=== PATIENT | male | born 1945 | race Caucasian/White ===

== ENCOUNTER 2018-07-13 07:10 | Emergency (ER) | payer OTHER ==
[2018-07-13 07:28] VITALS: BP 113/72; PULSE 82; TEMP 98; BMI 24.7
--- NOTE | 2018-07-13 07:30 | PDOC ---
History of Present Illness - General Chief Complaint: Edema Stated Complaint: L SIDED FACIAL SWELLING Time Seen by Provider: 07/13/18 07:29 - History of Present Illness Initial Comments: 07/13/18 08:44 The patient is a 73 year old male who denies significant PMH who presents for evaluation of left sided facial swelling. The patient reports a 1 day history of worsening left sided facial swelling and pain prompting his presentation to the ED for further evaluation. The patient notes that he has poor dentition and has been told that he requires tooth extraction on the left side as well. He otherwise denies fevers, chills, SOB, chest pain, nausea, vomiting, abdominal pain, or changes with urination or bowel movements. Past History - Past Medical History Allergies/Adverse Reactions: Allergies Allergy/AdvReac Type Severity Reaction Status Date / Time No Known Allergies Allergy Verified 07/13/18 07:24 Home Medications: Ambulatory Orders Amox-Tr/K Cl [Augmentin - 875Mg Tablet] 1 tab PO BID #20 tablet 07/13/18 COPD: No - Suicide/Smoking/Psychosocial Hx Smoking History: Never smoked Review of Systems - Review of Systems Comments:: 07/13/18 08:46 Constitutional: No fevers, chills, fatigue, malaise HEENT: Left Facial Swelling. No Rhinorrhea, nasal congestion, visual changes Cardiovascular: No chest pain, syncope, palpitations, lightheadedness Respiratory: No Cough, SOB, Hemoptysis, Gastrointestinal: No Abdominal pain, Nausea, Vomiting, Constipation, Diarrhea, Melena Genitourinary: No Dysuria, Frequency, Urgency, Hesitancy, Hematuria, Flank pain Musculoskeletal: No Myalgia, arthralgia Skin: No rashes, itching, bruising, pallor Neurologic: No Headache, Dizziness, Numbness, Weakness, or Tingling Psychiatric: No Hallucinations. No SI or HI *Physical Exam - Vital Signs Last Vital Signs Temp Pulse Resp BP Pulse Ox 98 F 82 18 113/72 99 07/13/18 07:21 07/13/18 07:21 07/13/18 07:21 07/13/18 07:21 07/13/18 07:21 - Physical Exam Comments: 07/13/18 08:47 General Appearance: Nourished. No Apparent Distress HEENT: Edema noted to the left face with induration and fluctuance palpable on exam to the left cheek. No Pharyngeal Erythema, Tonsillar Exudate, Tonsillar Erythema Neck: No Cervical Lymphadenopathy Respiratory/Chest: Lungs Clear, Normal Breath Sounds. No Crackles, Rales, Rhonchi, Wheezing Cardiovascular: Regular Rhythm, Regular Rate. No Murmur, Gallops, Rubs Gastrointestinal/Abdominal: Normal Bowel Sounds, Soft. No Guarding, Rebound, Tenderness Musculoskeletal: No CVA Tenderness Extremity: Normal Capillary Refill Integumentary: Normal Color, Dry, Warm Neurologic: Fully Oriented, Alert, Normal Mood/Affect, Normal Response, Heart Score/ECG Review #1 ECG reviewed & interpreted by me at: 08:48 General ECG Interpretation: Sinus Rhythm, Normal Rate, No acute ischemic changes 07/13/18 08:48 Left [place] Deviation Left Bundle Branch Block ED Treatment Course - LABORATORY CBC & Chemistry Diagram: 07/13/18 08:10 07/13/18 08:10 Medical Decision Making - Medical Decision Making 07/13/18 08:48 The patient is a 73 year old male who denies significant PMH who presents for evaluation of left sided facial swelling. Differential includes but is not limited to: Cellulitis, Abscess, Infectious, metabolic Derangement. Given the patient's history and physical exam, we are concerned for an abscess. We will obtain a cbc, cmp, lactate, blood cultures, coags, facial CT to evaluate further. We will treat in the meantime with iv fluids and clindamycin 600mg and continue to monitor and reassess while here in the ED. 07/13/18 09:06 The patient was brought to CT scan and is refusing IV contrast at this time. We extensively discussed the need for iv contrast and the limited study without iv contrast for the patient's condition. The patient continued to voice that he did not want iv contrast due to not knowing how his body would react to the contrast. We attempted to address the patient's concerns and discussed the low risk of reaction to the contrast and the patient continued to refuse iv contrast. We will obtain CT scanning without contrast. 07/13/18 10:16 CBC demonstrates an elevated wbc to 11. cmp, lactate are unremarkable. We believe the patient requires admission for iv antibiotics given the extent of his soft tissue infection and risk for worsening deep tissue infection in the face. The patient voiced that he wished to leave A and is refuse admission at this time. We discussed the risks of leaving AMA including but not limited to , worsening infection, deep tissue infection, cavernous venous thrombosis, permanent disability and the patient continued to voice that he wished to leave AMA. We discussed the benefits of admission for iv antibiotics and the patient continued to voice that he wished to leave AMA. The patient signed the AMA form and his iv was removed. We sent antibiotics to the patient' s pharmacy for treatment and discussed strict return precautions with the patient who voiced understanding. The patient voiced that he would attempt to return to the ED for admission later today. *DC/Admit/Observation/Transfer Diagnosis at time of Disposition: Facial infection - Discharge Dispostion Disposition: AGAINST MEDICAL ADVICE Condition at time of disposition: Stable - Prescriptions Prescriptions: Amox-Tr/K Cl [Augmentin - 875Mg Tablet] 1 tab PO BID #20 tablet - Referrals - Patient Instructions Printed Discharge Instructions: DI for Cellulitis -- Adult Additional Instructions: Please return to the ER if you experience concerning or worsening symptoms including worsening difficulty breathing, weakness, or chest pain. Your lab results show that you have an infection to the deep tissues of your face. We are recommending admission for iv antibiotics. WE have sent a prescription for antibiotics to your pharmacy that you should take as directed. Please call to schedule a follow up appointment with your primary care provider within 1-2 days to discuss your ER visit and further management of your symptoms. - Post Discharge Activity
[2018-07-13] MEDS ORDERED: SODIUM CHLORIDE 1,000 ML IV STA (07:55)
[2018-07-13] MEDS ORDERED: CLINDAMYCIN 600MG PREMIX IVPB 600 MG/50 ML BAG IVPB ONE ×2 (07:55→08:16)
--- NOTE | 2018-07-13 08:18 | PDOC ---
Attending Attestation - Resident Resident Name: RadhikaHerrera - ED Attending Attestation I have performed the following: I have examined & evaluated the patient, The case was reviewed & discussed with the resident, I agree w/resident's findings & plan, Exceptions are as noted - HPI HPI: 07/13/18 08:13 73-year-old male with no past medical history presents with left maxillary swelling and erythema. Patient reports his poor dentition and is scheduled to undergo further workup to his left upper molar tooth. Has not received any recent dental procedures yet. Yesterday, noted a small amount of swelling in the left maxillary region that have progressively worsened today. Denies any pain on extraocular movements or ocular pain. No fevers or chills. Came in because his symptoms worsen. - Physicial Exam PE: 07/13/18 08:14 GENERAL: Awake, alert, and fully oriented, in no acute distress HEAD: No signs of trauma EYES: PERRLA, EOMI, sclera anicteric, conjunctiva clear ENT: Auricles normal inspection, hearing grossly normal, nares patent, oropharynx clear without exudates. Moist mucosa + poor dentition. Left maxillary induration and ?fluctuance approximately 6x6 cm , tender to palpation,. NECK: Normal ROM, supple, EXTREMITIES: Normal range of motion, no edema. No clubbing or cyanosis. No cords, erythema, or tenderness NEUROLOGICAL: Cranial nerves II through XII grossly intact. Normal speech, normal gait SKIN: Warm, Dry, normal turgor, no rashes or lesions noted. - Medical Decision Making 07/13/18 08:18 Vital Signs Temp Pulse Resp BP Pulse Ox 98 F 82 18 113/72 99 07/13/18 07:21 07/13/18 07:21 07/13/18 07:21 07/13/18 07:21 07/13/18 07:21 impression: left facial cellulitis vs. abscess 2/2 likely poor dentition. I agree with resident's plan. Labs, blood cultures, CT facial with IV contrast. Likely needs transfer for OMFS consultation and management. Empiric IV antibiotics (clindamycin) 07/13/18 09:33 CBC, BMP 07/13/18 08:10 07/13/18 08:10 CMP Sodium 136 mmol/L (136-145) 07/13/18 08:10 Potassium 3.9 mmol/L (3.5-5.1) 07/13/18 08:10 Chloride 103 mmol/L (98-107) 07/13/18 08:10 Carbon Dioxide 25 mmol/L (21-32) 07/13/18 08:10 Anion Gap 8 MMOL/L (8-16) 07/13/18 08:10 BUN 11 mg/dL (7-18) 07/13/18 08:10 Creatinine 1.1 mg/dL (0.55-1.3) 07/13/18 08:10 Creat Clearance w eGFR > 60 (>60) 07/13/18 08:10 Random Glucose 114 mg/dL (74-106) H 07/13/18 08:10 Lactic Acid 1.0 mmol/L (0.4-2.0) 07/13/18 08:10 Calcium 8.7 mg/dL (8.5-10.1) 07/13/18 08:10 Total Bilirubin 1.4 mg/dL (0.2-1.0) H 07/13/18 08:10 AST 28 U/L (15-37) 07/13/18 08:10 ALT 28 U/L (13-61) 07/13/18 08:10 Alkaline Phosphatase 41 U/L (45-117) L 07/13/18 08:10 Total Protein 7.8 g/dl (6.4-8.2) 07/13/18 08:10 Albumin 4.0 g/dl (3.4-5.0) 07/13/18 08:10 07/13/18 10:34 Pt expresses that he needs to go home. states that he has to take care of his dogs, and errands but promises to come back. We expressed our concerns that the patient has not completed his workup and our concerns for deep space infection, facial abscess. The patient verbalizes and understands. He is AAOx3 and has capacity. He states that if the CT scan results do not come back by 11 am, he will go home AMA. Even if they do come back, he will leave AMA to take care of his errands. Pt has been given a prescription of clindamycin. Heart Score/ECG Review #1 ECG reviewed & interpreted by me at: 08:20 07/13/18 08:40 NSR 76, +LBBB, no std/evelyn, scarbossa negative
[2018-07-13 08:25] LABS: BASO % 0.4 % (0-2.0); HEMATOCRIT 38.8 % (35.4-49); LYMPH % 13.5 % (8-40); MCH 31.5 pg (25.7-33.7); MCHC 33.4 g/dl (32.0-35.9); MEAN CELL VOLUME 94.2 fl (80-96); MEAN PLT VOLUME 8.3 fl (7.5-11.1); MONO % 10.5 % (3.8-10.2); NEUT % 73.6 % (42.8-82.8); PLATELET COUNT 275 K/MM3 (134-434); RBC 4.12 M/mm3 (4.00-5.60); RDW 12.6 % (11.9-15.9); WHITE BLOOD COUNT 11.7 K/mm3 (4.0-10.0)
[2018-07-13 08:49] LABS: INR 1.05 (0.83-1.09); PROTHROMBIN TIME (PATIENT) 11.9 SEC (9.7-13.0)
[2018-07-13 08:52] LABS: ACTIVATED PTT 28.7 SECONDS (25.2-36.5)
[2018-07-13 09:01] LABS: CHLORIDE 103 mmol/L (98-107); POTASSIUM 3.9 mmol/L (3.5-5.1); SODIUM 136 mmol/L (136-145)
[2018-07-13 09:16] LABS: ALK PHOS 41 U/L (45-117); ANION GAP 8 MMOL/L (8-16); BILIRUBIN,TOTAL 1.4 mg/dL (0.2-1.0); BLOOD UREA NITROGEN 11 mg/dL (7-18); CALCIUM 8.7 mg/dL (8.5-10.1); CO2 25 mmol/L (21-32); CREATININE 1.1 mg/dL (0.55-1.3); GLUCOSE,RANDOM 114 mg/dL (74-106); SGOT/AST 28 U/L (15-37); SGPT/ALT 28 U/L (13-61); TOT PROT 7.8 g/dl (6.4-8.2)
--- NOTE | 2018-07-13 21:13 | EKG ---
Test Reason : Blood Pressure : / mmHG Vent. Rate : 076 BPM Atrial Rate : 076 BPM P-R Int : 180 ms QRS Dur : 152 ms QT Int : 416 ms P-R-T Axes : 045 -33 036 degrees QTc Int : 468 ms NORMAL SINUS RHYTHM LEFT AXIS DEVIATION LEFT BUNDLE BRANCH BLOCK ABNORMAL ECG NO PREVIOUS ECGS AVAILABLE Confirmed by BERT MELÉNDEZ MD ([id number]) on 07/13/2018 9:12:58 PM Referred By: Confirmed By:BERT MELÉNDEZ MD
== END 2018-07-13 11:10 | disposition left against medical advice (07) ==
LOC: JER 07:10
PROC: 3E03329 Introduction of Other Anti-infective into Peripheral Vein, Percutaneous Approach (ICD-10-PCS; principal; 2018-07-13)
PROC: 3E0337Z Introduction of Electrolytic and Water Balance Substance into Peripheral Vein, Percutaneous Approach (ICD-10-PCS; 2018-07-13)
DX: B99.9 Unspecified infectious disease (principal)
CPT/HCPCS: 36415; 70486-TC; 80053; 83605; 85025; 85610; 85730; 87040; 93005; 93010; 96361; 96365; 99283-25; J7030

== ENCOUNTER 2018-07-13 12:58 | Inpatient (IN) | payer OTHER ==
--- NOTE | 2018-07-13 13:16 | PDOC ---
History of Present Illness - General Chief Complaint: Edema Stated Complaint: REVISIT, FOLLOW UP Time Seen by Provider: 07/13/18 13:10 - History of Present Illness Initial Comments: 07/13/18 13:17 The patient is a 73 year old male who denies significant PMH who presents for evaluation of left sided facial swelling. The patient reports a 1 day history of worsening left sided facial swelling and pain prompting his presentation to the ED for further evaluation. The patient notes that he has poor dentition and has been told that he requires tooth extraction on the left side as well. He presented earlier today to the ED and left AMA prior to finishing is full work up. He returns for continued work up at this time. He otherwise denies fevers, chills, SOB, chest pain, nausea, vomiting, abdominal pain, or changes with urination or bowel movements. Past History - Past Medical History Allergies/Adverse Reactions: Allergies Allergy/AdvReac Type Severity Reaction Status Date / Time No Known Allergies Allergy Verified 07/13/18 13:07 Home Medications: Ambulatory Orders Amox-Tr/K Cl [Augmentin - 875Mg Tablet] 1 tab PO BID #20 tablet 07/13/18 Atorvastatin Calcium 10 mg PO HS 07/13/18 Fenofibrate Nanocrystallized [Fenofibrate] 145 mg PO DAILY 07/13/18 Lisinopril/Hydrochlorothiazide [Lisinopril-Hctz 10-12.5 mg Tab] 1 each PO DAILY 07/13/18 Metoprolol Succinate 50 mg PO DAILY 07/13/18 COPD: No - Suicide/Smoking/Psychosocial Hx Smoking History: Never smoked Review of Systems - Review of Systems Comments:: 07/13/18 13:18 Constitutional: No fevers, chills, fatigue, malaise HEENT: Left Facial Swelling. No Rhinorrhea, nasal congestion, visual changes Cardiovascular: No chest pain, syncope, palpitations, lightheadedness Respiratory: No Cough, SOB, Hemoptysis, Gastrointestinal: No Abdominal pain, Nausea, Vomiting, Constipation, Diarrhea, Melena Genitourinary: No Dysuria, Frequency, Urgency, Hesitancy, Hematuria, Flank pain Musculoskeletal: No Myalgia, arthralgia Skin: No rashes, itching, bruising, pallor Neurologic: No Headache, Dizziness, Numbness, Weakness, or Tingling Psychiatric: No Hallucinations. No SI or HI *Physical Exam - Vital Signs Last Vital Signs Temp Pulse Resp BP Pulse Ox 98.3 F 79 18 117/66 99 07/13/18 13:04 07/13/18 13:04 07/13/18 13:04 07/13/18 13:04 07/13/18 13:04 - Physical Exam Comments: 07/13/18 13:19 General Appearance: Nourished. No Apparent Distress HEENT: Edema noted to the left face with induration and fluctuance palpable on exam to the left cheek. No Pharyngeal Erythema, Tonsillar Exudate, Tonsillar Erythema Neck: No Cervical Lymphadenopathy Respiratory/Chest: Lungs Clear, Normal Breath Sounds. No Crackles, Rales, Rhonchi, Wheezing Cardiovascular: Regular Rhythm, Regular Rate. No Murmur, Gallops, Rubs Gastrointestinal/Abdominal: Normal Bowel Sounds, Soft. No Guarding, Rebound, Tenderness Musculoskeletal: No CVA Tenderness Extremity: Normal Capillary Refill Integumentary: Normal Color, Dry, Warm Neurologic: Fully Oriented, Alert, Normal Mood/Affect, Normal Response, ED Treatment Course - LABORATORY CBC & Chemistry Diagram: 07/14/18 06:10 07/14/18 06:10 Medical Decision Making - Medical Decision Making 07/13/18 13:19 The patient is a 73 year old male who denies significant PMH who presents for evaluation of left sided facial swelling. Patient had cbc, cmp, lactate, blood cultures drawn at his prior visit today with his cbc demonstrating an elevated wbc to 11. The patient received iv fluids and iv clindamycin during his prior visit to the ED. We will follow up on the patient's results from his facial CT and continue to monitor and reassess while here in the ED. 07/13/18 15:[address] demonstrates findings consistent with and extensive cellulitis but no abscess as read by our radiologist. The patient will require admission for further management and iv antibiotics. We discussed the case with the admitting team who accepted the patient for admission. *DC/Admit/Observation/Transfer Diagnosis at time of Disposition: Facial infection Cellulitis Qualifiers: Site of cellulitis: unspecified site Qualified Code(s): L03.90 - Cellulitis, unspecified - Discharge Dispostion Condition at time of disposition: Stable Decision to Admit order: Yes - Referrals - Patient Instructions - Post Discharge Activity
--- NOTE | 2018-07-13 13:21 | PDOC ---
Attending Attestation - Resident Resident Name: RadhikaHerrera - ED Attending Attestation I have performed the following: I have examined & evaluated the patient, The case was reviewed & discussed with the resident, I agree w/resident's findings & plan, Exceptions are as noted - HPI HPI: 07/13/18 13:18 73 yo M presents with left facial cellulitis vs. swelling. Pt had left AMA several hours ago to take care of his dogs. He now returns after taking his errands. No new complaints. - Physicial Exam PE: 07/13/18 13:19 AAOX3, NAD Poor dentition, ~6x6 cm induration and ?fluctuance? on left maxillary region. Airway protected. Pt breathing comfortably. - Medical Decision Making 07/13/18 13:20 Vital Signs Temp Pulse Resp BP Pulse Ox 98.3 F 79 18 117/66 99 07/13/18 13:04 07/13/18 13:04 07/13/18 13:04 07/13/18 13:04 07/13/18 13:[address] facial results. If no abscess, pt should be admitted for IV antibiotics. Otherwise, if facial abscess, needs OMFS consultation and likely transfer. 07/13/18 14:52 CT demonstrates large L facial cellulitis, but no discrete abscess
[2018-07-13] MEDS ORDERED: ACETAMINOPHEN 325 MG TABLET (FP) PO PRN (14:42)
--- NOTE | 2018-07-13 14:45 | HP ---
CHIEF COMPLAINT: Left-sided facial swelling PCP: None HISTORY OF PRESENT ILLNESS: 73 year-old male who denies significant PMH and who presents for evaluation of left-sided facial swelling. The patient reports a 1-day history of worsening left-sided facial swelling and pain prompting his presentation to the ED for further evaluation. The patient is scheduled for removal of an upper left tooth tomorrow morning with his regular dentist. He denies fevers, sweats, chills. ER course was notable for: (1) WBC 11.7k (2) CT facial bones: extensive soft tissue swelling about the left mandible extending into the periorbital region; no discrete abscess (3) Clinda IV 600mg x 1; NS x 1L Recent Travel: No PAST MEDICAL HISTORY: None reported PAST SURGICAL HISTORY: Social History: Smoking: Alcohol: Drugs: Family History: Allergies No Known Allergies Allergy (Verified 07/13/18 13:07) HOME MEDICATIONS: Home Medications Medication Instructions Recorded Amox-Tr/K Cl [Augmentin - 875Mg 1 tab PO BID #20 tablet 07/13/18 Tablet] Atorvastatin Calcium 10 mg PO HS 07/13/18 Fenofibrate Nanocrystallized 145 mg PO DAILY 07/13/18 [Fenofibrate] Lisinopril/Hydrochlorothiazide 1 each PO DAILY 07/13/18 [Lisinopril-Hctz 10-12.5 mg Tab] Metoprolol Succinate 50 mg PO DAILY 07/13/18 REVIEW OF SYSTEMS CONSTITUTIONAL: Absent: fever, chills, diaphoresis, generalized weakness, malaise, loss of appetite, weight change HEENT: Absent: rhinorrhea, nasal congestion, throat pain, throat swelling, difficulty swallowing, mouth swelling, ear pain, eye pain, visual changes CARDIOVASCULAR: Absent: chest pain, syncope, palpitations, irregular heart rate, lightheadedness , peripheral edema RESPIRATORY: Absent: cough, shortness of breath, dyspnea with exertion, orthopnea, wheezing, stridor, hemoptysis GASTROINTESTINAL: Absent: abdominal pain, abdominal distension, nausea, vomiting, diarrhea, constipation, melena, hematochezia GENITOURINARY: Absent: dysuria, frequency, urgency, hesitancy, hematuria, flank pain, genital pain MUSCULOSKELETAL: Absent: myalgia, arthralgia, joint swelling, back pain, neck pain SKIN/SOFT TISSUE +left facial swelling Absent: rash, itching, pallor HEMATOLOGIC/IMMUNOLOGIC: Absent: easy bleeding, easy bruising, lymphadenopathy, frequent infections ENDOCRINE: Absent: unexplained weight gain, unexplained weight loss, heat intolerance, cold intolerance NEUROLOGIC: Absent: headache, focal weakness or paresthesias, dizziness, unsteady gait, seizure, mental status changes, bladder or bowel incontinence PSYCHIATRIC: Absent: anxiety, depression, suicidal or homicidal ideation, hallucinations. PHYSICAL EXAMINATION Vital Signs - 24 hr 07/13/18 07/13/18 13:04 13:38 Temperature 98.3 F Pulse Rate 79 Respiratory 18 Rate Blood Pressure 117/66 O2 Sat by Pulse 99 98 Oximetry (%) GENERAL: Awake, alert, and fully oriented, in no acute distress. HEAD: left facial swelling from mandible to periorbital area, erythema THROAT: left buccal swelling LUNGS: Breath sounds equal, clear to auscultation bilaterally. No wheezes, and no crackles. No accessory muscle use. HEART: Regular rate and rhythm, normal S1 and S2 ABDOMEN: Soft, nontender, not distended MUSCULOSKELETAL: Normal range of motion at all joints. No bony deformities or tenderness. No CVA tenderness. UPPER EXTREMITIES: 2+ pulses, warm, well-perfused. No cyanosis. No clubbing. No peripheral edema. LOWER EXTREMITIES: 2+ pulses, warm, well-perfused. No calf tenderness. No peripheral edema. NEUROLOGICAL: Cranial nerves II-XII intact. Normal speech. Moving all extremities freely. Sits and stands without assistance. ASSESSMENT/PLAN: 73 year-old male with no reported PMH admitted for left facial cellulitis. Left facial cellulitis --07/13 CT facial bones: extensive soft tissue swelling about the left mandible extending into the periorbital region; no discrete abscess --possible dental source of infection/inflammation --start Zosyn --ID consult FEN Fluids: NS @ 83mL/hr Electrolytes: replete as indicated Nutrition: soft DVT prophylaxis: lovenox Dispo: continues to require inpatient care. Full code. Visit type - Emergency Visit Emergency Visit: Yes ED Registration Date: 07/13/18 Care time: The patient presented to the Emergency Department on the above date and was hospitalized for further evaluation of their emergent condition. - New Patient This patient is new to me today: Yes Date on this admission: 07/14/18 - Critical Care Critical Care patient: No Hospitalist Screening - Colonoscopy Questionnaire Colonoscopy Questionnaire: Colonoscopy Questionnaire - Patient: 50 - 75 years old and never had a screening colonoscopy: Unknown History of colon or rectal polyps, or CA: Unknown History of IBD, Crohn's disease or UC: Unknown History of abdominal radiation therapy as a child: Unknown - Relative: 1 with colon or rectal CA, or polyps at age 60 or younger: Unknown Colon or rectal CA diagnosed at age 45 or younger: Unknown Multiple relatives with colon or rectal CA: Unknown - Outcome: Screening Result: Negative Screen
[2018-07-13 16:29] LABS: BASO % 0.3 % (0-2.0); EOS % 2.2 % (0-4.5); HEMATOCRIT 35.3 % (35.4-49); HEMOGLOBIN 12.3 GM/dL (11.7-16.9); LYMPH % 16.5 % (8-40); MCH 32.7 pg (25.7-33.7); MCHC 34.7 g/dl (32.0-35.9); MEAN CELL VOLUME 94.1 fl (80-96); MEAN PLT VOLUME 8.1 fl (7.5-11.1); PLATELET COUNT 248 K/MM3 (134-434); RBC 3.75 M/mm3 (4.00-5.60); RDW 13.1 % (11.9-15.9); WHITE BLOOD COUNT 9.6 K/mm3 (4.0-10.0)
--- NOTE | 2018-07-13 16:40 | CON.ID ---
Consult - History of Present Illness History of Present Illness: Pt is a 73 y.o. male with PMH of HTN, HLD, and poor dentition who presented to the ER with c/o Lt facial swelling that began the day before. He was seen and recommendation to stay was made but pt had to leave briefly to take care of things at home. He is currently in the ER. He states that he saw his dentist over a week ago and the plan was to extract is lower left tooth. He developed facial swelling/erythema that has extending from his jaw to under his Lt eye. Denies fever/chills/ or visual disturbances. Pt denies having any other complaints. - History Source History Provided By: Patient Limitations to Obtaining History: No Limitations - Past Medical History Cardio/Vascular: Yes: HTN, Hyperlipdemia - Past Surgical History Additional Surgical History: dental bridge - Alcohol/Substance Use Hx Alcohol Use: No - Smoking History Smoking history: Never smoked - Social History Usual Living Arrangement: With Spouse History of Recent Travel: No Home Medications - Allergies Allergies/Adverse Reactions: Allergies Allergy/AdvReac Type Severity Reaction Status Date / Time No Known Allergies Allergy Verified 07/13/18 13:07 - Home Medications Home Medications: Ambulatory Orders Amox-Tr/K Cl [Augmentin - 875Mg Tablet] 1 tab PO BID #20 tablet 07/13/18 Review of Systems - Review of Systems Constitutional: reports: No Symptoms Eyes: reports: No Symptoms HENT: reports: Other (Left facial swelling/erythema) Neck: reports: No Symptoms Cardiovascular: reports: No Symptoms Respiratory: reports: No Symptoms Gastrointestinal: reports: No Symptoms Genitourinary: reports: No Symptoms Breasts: reports: No Symptoms Reported Musculoskeletal: reports: No Symptoms Integumentary: reports: No Symptoms Neurological: reports: No Symptoms Endocrine: reports: No Symptoms Hematology/Lymphatic: reports: No Symptoms Psychiatric: reports: No Symptoms Physical Exam Vital Signs: Vital Signs Temperature 98.3 F 07/13/18 13:04 Pulse Rate 79 07/13/18 13:04 Respiratory Rate 18 07/13/18 13:04 Blood Pressure 117/66 07/13/18 13:04 O2 Sat by Pulse Oximetry (%) 98 07/13/18 13:38 Constitutional: Yes: No Distress, Calm Eyes: Yes: WNL, Conjunctiva Clear HENT: Yes: Atraumatic, Other (poor dentition/caries) Neck: Yes: Supple Cardiovascular: Yes: Regular Rate and Rhythm Respiratory: Yes: CTA Bilaterally Gastrointestinal: Yes: Normal Bowel Sounds, Soft Renal/: Yes: WNL Musculoskeletal: Yes: WNL Extremities: Yes: WNL Integumentary: Yes: Erythema (Lt facial erythema/induration from Lt mandible extending to underneath Lt eye) Neurological: Yes: Alert, Oriented Psychiatric: Yes: Alert Labs: CBC, BMP 07/13/18 16:20 Imaging - Results Cat Scan: Report Reviewed (Facial CT : soft tissue edema, no discrete abscess) Problem List - Problems (1) Cellulitis Code(s): L03.90 - CELLULITIS, UNSPECIFIED Qualifiers: Site of cellulitis: unspecified site Qualified Code(s): L03.90 - Cellulitis , unspecified (2) Facial infection Code(s): L08.9 - LOCAL INFECTION OF THE SKIN AND SUBCUTANEOUS TISSUE, UNSP Assessment/Plan 73 y.o. male with PMH of HTN, HLD with poor dentition presenting with Lt facial swelling Facial cellulitis/ odontogenic source Poor dentition/caries -- CT results reviewed - no clear abscess noted -- Will start Unasyn 3 g IV Q6 empirically -- recommend dental evaluation -- monitor wbc, vitals will follow Thank you
[2018-07-13] MEDS: AMPICILLIN NA/SULBACTAM NA 3 GM in SODIUM CHLORIDE 100 ML IVPB SCH ×3 (17:45→21:08)
[2018-07-13] MEDS ORDERED: SODIUM CHLORIDE 1,000 ML IV SCH (21:30)
[2018-07-13] MEDS ORDERED: ATORVASTATIN CA 10 MG TABLET (FP) ONE (21:34)
[2018-07-13] MEDS: ATORVASTATIN CA 10 MG TABLET (FP) PO SCH (21:37)
[2018-07-13 22:48] VITALS: BMI 21.2
[2018-07-14] MEDS: AMPICILLIN NA/SULBACTAM NA 3 GM in SODIUM CHLORIDE 100 ML IVPB SCH ×4 (02:33→21:02)
[2018-07-14] MEDS ORDERED: PT OWN MED DRAWER 7, Y5N ONE ×5 (06:36→14:44)
[2018-07-14 07:07] LABS: BASO % 0.2 % (0-2.0); EOS % 4.9 % (0-4.5); HEMATOCRIT 34.4 % (35.4-49); HEMOGLOBIN 11.6 GM/dL (11.7-16.9); LYMPH % 22.1 % (8-40); MCH 31.9 pg (25.7-33.7); MCHC 33.6 g/dl (32.0-35.9); MEAN CELL VOLUME 94.8 fl (80-96); MEAN PLT VOLUME 8.3 fl (7.5-11.1); MONO % 13.2 % (3.8-10.2); NEUT % 59.6 % (42.8-82.8); PLATELET COUNT 227 K/MM3 (134-434); RBC 3.63 M/mm3 (4.00-5.60); RDW 12.7 % (11.9-15.9); WHITE BLOOD COUNT 6.3 K/mm3 (4.0-10.0)
[2018-07-14 07:39] LABS: ALBUMIN 3.2 g/dl (3.4-5.0); ANION GAP 11 MMOL/L (8-16); BLOOD UREA NITROGEN 12 mg/dL (7-18); CALCIUM 8.2 mg/dL (8.5-10.1); CHLORIDE 108 mmol/L (98-107); CO2 24 mmol/L (21-32); GLUCOSE,RANDOM 110 mg/dL (74-106); MAGNESIUM 2.2 mg/dL (1.8-2.4); POTASSIUM 4.1 mmol/L (3.5-5.1); SODIUM 143 mmol/L (136-145)
[2018-07-14 07:42] LABS: ALK PHOS 33 U/L (45-117); BILIRUBIN,TOTAL 0.9 mg/dL (0.2-1.0); CREATININE 0.9 mg/dL (0.55-1.3); SGOT/AST 23 U/L (15-37); SGPT/ALT 22 U/L (13-61); TOT PROT 6.5 g/dl (6.4-8.2)
--- NOTE | 2018-07-14 08:54 | PN ---
Physical Exam: SUBJECTIVE: Patient seen and examined at bedside. OBJECTIVE: Vital Signs Period Temp Pulse Resp BP Sys/Bustos Pulse Ox Last 24 Hr 98.3 F-99.9 F 68-92 18-20 101-130/43-77 98-99 GENERAL: Awake, alert, and fully oriented, in no acute distress. HEAD: left facial swelling from mandible to periorbital area resolving, erythema resolved, no tenderness over the sinuses THROAT: left buccal swelling LUNGS: Breath sounds equal, clear to auscultation bilaterally. No wheezes, and no crackles. No accessory muscle use. HEART: Regular rate and rhythm, normal S1 and S2 ABDOMEN: Soft, nontender, not distended MUSCULOSKELETAL: Normal range of motion at all joints. No bony deformities or tenderness. No CVA tenderness. UPPER EXTREMITIES: 2+ pulses, warm, well-perfused. No cyanosis. No clubbing. No peripheral edema. LOWER EXTREMITIES: 2+ pulses, warm, well-perfused. No calf tenderness. No peripheral edema. NEUROLOGICAL: Cranial nerves II-XII intact. Normal speech. Steady gait. Laboratory Results - last 24 hr 07/13/18 07/14/18 07/14/18 16:20 06:10 06:10 WBC 9.6 6.3 RBC 3.75 L 3.63 L Hgb 12.3 11.6 L Hct 35.3 L 34.4 L MCV 94.1 94.8 MCH 32.7 31.9 MCHC 34.7 33.6 RDW 13.1 12.7 Plt Count 248 227 MPV 8.1 8.3 Absolute Neuts (auto) 6.8 3.8 Neutrophils % 71.0 59.6 Lymphocytes % 16.5 D 22.1 D Monocytes % 10.0 13.2 H Eosinophils % 2.2 4.9 H D Basophils % 0.3 0.2 Nucleated RBC % 0 0 Sodium 143 Potassium 4.1 Chloride 108 H Carbon Dioxide 24 Anion Gap 11 BUN 12 Creatinine 0.9 Creat Clearance w eGFR > 60 Random Glucose 110 H Calcium 8.2 L Magnesium 2.2 Total Bilirubin 0.9 AST 23 ALT 22 Alkaline Phosphatase 33 L Total Protein 6.5 Albumin 3.2 L Active Medications Generic Name Dose Route Start Last Admin Trade Name Freq PRN Reason Stop Dose Admin Acetaminophen 650 mg 07/13/18 14:42 Tylenol - PO Q6H PRN PAIN LEVEL 1-5 Atorvastatin Calcium 10 mg 07/13/18 22:00 07/13/18 21:37 Lipitor - PO 10 mg HS TRESSA Administration Enoxaparin Sodium 40 mg 07/14/18 10:00 Lovenox - SQ DAILY TRESSA Hydrochlorothiazide 12.5 mg 07/14/18 10:00 Hctz - PO DAILY TRESSA Ampicillin Sodium/Sulbactam 100 mls @ 200 mls/hr 07/13/18 17:00 07/14/18 02: 33 Sodium 3 gm/ Sodium Chloride IVPB 200 mls/hr Q6H-IV TRESSA Administration Sodium Chloride 1,000 mls @ 83 mls/hr 07/13/18 21:30 07/13/18 21:37 Normal Saline - IV Not Given ASDIR TRESSA Lisinopril 10 mg 07/14/18 10:00 Prinivil PO DAILY TRESSA Metoprolol Succinate 50 mg 07/14/18 10:00 Toprol Xl - PO DAILY TRESSA ASSESSMENT/PLAN 73 year-old male who denies a previous medical history but admits he goes to a doctor and takes medications. Very poor historian. Admitted for left facial cellulitis. Left facial cellulitis --07/13 CT facial bones: extensive soft tissue swelling about the left mandible extending into the periorbital region; no discrete abscess --possible dental source of infection/inflammation; spoke with dentist Dr. Martinez ([phone]); patient has tooth that needs extraction; he will defer until cellulitis is cleared --on Unasyn --ID consult Hypertension --BP stable --continue Toprol XL, lisinopril, HCTZ Hyperlipidemia --continue atorvastatin FEN Fluids: PO intake adequate Electrolytes: replete as indicated Nutrition: soft DVT prophylaxis: lovenox Dispo: continues to require inpatient care. Full code. Visit type - Emergency Visit Emergency Visit: Yes ED Registration Date: 07/13/18 Care time: The patient presented to the Emergency Department on the above date and was hospitalized for further evaluation of their emergent condition. - New Patient This patient is new to me today: Yes Date on this admission: 07/14/18 - Critical Care Critical Care patient: No
[2018-07-14] MEDS ORDERED: PATIENT'S OWN MEDICATION (NON-FORMULARY) (Lisinopril/Hydrochlorothiazide [Lisinopril-Hctz PO SCH (10:00)
[2018-07-14] MEDS: ENOXAPARIN NA (PORCINE) 40 MG/0.4 ML DISP.SYRIN SQ SCH ×2 (10:13→10:17)
[2018-07-14] MEDS: LISINOPRIL 10 MG TABLET (FP) PO SCH ×3 (10:14→21:01)
[2018-07-14] MEDS: HYDROCHLOROTHIAZIDE 12.5 MG CAPSULE (FP) PO SCH ×3 (10:14→21:02)
--- NOTE | 2018-07-14 11:46 | PN ---
Progress Note, Physician History of Present Illness: stable swelling improving - Current Medication List Current Medications: Active Medications Acetaminophen (Tylenol -) 650 mg PO Q6H PRN PRN Reason: PAIN LEVEL 1-5 Atorvastatin Calcium (Lipitor -) 10 mg PO HS [facility] Last Admin: 07/13/18 21:37 Dose: 10 mg Enoxaparin Sodium (Lovenox -) 40 mg SQ DAILY [facility] Last Admin: 07/14/18 10:17 Dose: Not Given Hydrochlorothiazide (Hctz -) 12.5 mg PO HS [facility] Ampicillin Sodium/Sulbactam (Sodium 3 gm/ Sodium Chloride) 100 mls @ 200 mls/ hr IVPB Q6H-IV [facility] Last Admin: 07/14/18 09:04 Dose: 200 mls/hr Lisinopril (Prinivil) 10 mg PO [facility] Metoprolol Succinate (Toprol Xl -) 50 mg PO [facility] - Objective Vital Signs: Vital Signs Temperature 99.0 F 07/14/18 09:27 Pulse Rate 80 07/14/18 09:27 Respiratory Rate 18 07/14/18 09:27 Blood Pressure 108/72 07/14/18 09:27 O2 Sat by Pulse Oximetry (%) 99 07/14/18 09:00 Constitutional: Yes: No Distress, Calm HENT: Yes: Other (left facial swelling) Neck: Yes: Supple Cardiovascular: Yes: Regular Rate and Rhythm Respiratory: Yes: Regular, CTA Bilaterally Musculoskeletal: Yes: WNL Extremities: Yes: WNL Labs: CBC, BMP 07/14/18 06:10 07/14/18 06:10 Assessment/Plan [facility] List - Problems (1) Cellulitis Code(s): L03.90 - CELLULITIS, UNSPECIFIED Qualifiers: Site of cellulitis: unspecified site Qualified Code(s): L03.90 - Cellulitis , unspecified (2) Facial infection Code(s): L08.9 - LOCAL INFECTION OF THE SKIN AND SUBCUTANEOUS TISSUE, UNSP Assessment/Plan 73 y.o. male with PMH of HTN, HLD with poor dentition presenting with Lt facial swelling Facial cellulitis/ odontogenic source Poor dentition/caries plan continue current abx will look at the swelling tomorrow and decide if patient can be switched to oral abx rest continue current mgmt dental appointment
[2018-07-14] MEDS: ATORVASTATIN CA 10 MG TABLET (FP) PO SCH (21:01)
[2018-07-15] MEDS: AMPICILLIN NA/SULBACTAM NA 3 GM in SODIUM CHLORIDE 100 ML IVPB SCH ×4 (02:40→21:05)
[2018-07-15] MEDS ORDERED: PT OWN MED DRAWER 7, Y5N ONE ×3 (08:24→19:56)
[2018-07-15] MEDS: ENOXAPARIN NA (PORCINE) 40 MG/0.4 ML DISP.SYRIN SQ SCH (09:09)
--- NOTE | 2018-07-15 11:40 | PN ---
Progress Note, Physician History of Present Illness: patient doing well swelling improving needs dentist to look at the the upper teeth - Current Medication List Current Medications: Active Medications Acetaminophen (Tylenol -) 650 mg PO Q6H PRN PRN Reason: PAIN LEVEL 1-5 Atorvastatin Calcium (Lipitor -) [address] [facility] Last Admin: 07/14/18 21:01 Dose: 10 mg Enoxaparin Sodium (Lovenox -) 40 mg SQ DAILY [facility] Last Admin: 07/15/18 09:09 Dose: Not Given Hydrochlorothiazide (Hctz -) 12.[address] [facility] Last Admin: 07/14/18 21:02 Dose: Not Given Ampicillin Sodium/Sulbactam (Sodium 3 gm/ Sodium Chloride) 100 mls @ 200 mls/ hr IVPB Q6H-IV [facility] Last Admin: 07/15/18 09:06 Dose: 200 mls/hr Lisinopril (Prinivil) [address] [facility] Last Admin: 07/14/18 21:01 Dose: 10 mg Metoprolol Succinate (Toprol Xl -) [address] [facility] Last Admin: 07/14/18 21:01 Dose: 50 mg - Objective Vital Signs: Vital Signs Temperature 98.6 F 07/15/18 05:30 Pulse Rate 82 07/15/18 09:00 Respiratory Rate 18 07/15/18 09:00 Blood Pressure 138/74 07/15/18 09:00 O2 Sat by Pulse Oximetry (%) 99 07/14/18 20:11 Constitutional: Yes: No Distress, Calm HENT: Yes: Other (swelling of the left side of the face) Cardiovascular: Yes: Regular Rate and Rhythm Respiratory: Yes: Regular, CTA Bilaterally Gastrointestinal: Yes: Normal Bowel Sounds, Soft Musculoskeletal: Yes: WNL Extremities: Yes: WNL Neurological: Yes: Alert, Oriented Psychiatric: Yes: Alert, Oriented Labs: CBC, BMP 07/14/18 06:10 07/14/18 06:10 Assessment/Plan [facility] List - Problems (1) Cellulitis Code(s): L03.90 - CELLULITIS, UNSPECIFIED Qualifiers: Site of cellulitis: unspecified site Qualified Code(s): L03.90 - Cellulitis , unspecified (2) Facial infection Code(s): L08.9 - LOCAL INFECTION OF THE SKIN AND SUBCUTANEOUS TISSUE, UNSP Assessment/Plan 73 y.o. male with PMH of HTN, HLD with poor dentition presenting with Lt facial swelling Facial cellulitis/ odontogenic source Poor dentition/caries plan continue current abx will look at the swelling tomorrow and decide if patient can be switched to oral abx rest continue current mgmt dental appointment
--- NOTE | 2018-07-15 13:11 | PN ---
Physical Exam: SUBJECTIVE: Patient seen and examined at the bedside. Anxious to go home "have lots of things to do". Spoke to him in detail of why he is here and the plan for antibiotics. Doctor Abner and I met with patient and again made him aware of the POC. As per ID, patient can be discharged tomorrow after the 9am dose of IV antibiotics and after he is seen by Dr. Levine. Assured patient that we will continue to monitor him closely. OBJECTIVE: still with mild edema of left face but overall improving. No difficulty swallowing or breathing. ambulating up and down hallways, steady gait. discharge tomorrow is the goal after morning dose of antibiotics. Vital Signs Period Temp Pulse Resp BP Sys/Bustos Pulse Ox Last 24 Hr 98.6 F-98.9 F 64-88 18-18 105-142/60-79 99 GENERAL: The patient is awake, alert, and fully oriented, in no acute distress. HEAD: no trauma, mild left cheek edema, no airway or swallowing compromise. EYES: PERRL, extraocular movements intact, sclera anicteric, conjunctiva clear. No ptosis. NECK: Trachea midline, full range of motion, supple. ABDOMEN: Soft, nontender, nondistended, normoactive bowel sounds, no guarding, no rebound, no hepatosplenomegaly, no masses. EXTREMITIES: no edema. NEUROLOGICAL: Normal speech, steady gait PSYCH: Normal mood, normal affect. Active Medications Generic Name Dose Route Start Last Admin Trade Name Freq PRN Reason Stop Dose Admin Acetaminophen 650 mg 07/13/18 14:42 Tylenol - PO Q6H PRN PAIN LEVEL 1-5 Atorvastatin Calcium 10 mg 07/13/18 22:00 07/14/18 21:01 Lipitor - PO 10 mg HS TRESSA Administration Enoxaparin Sodium 40 mg 07/14/18 10:00 07/15/18 09:09 Lovenox - SQ Not Given DAILY TRESSA Hydrochlorothiazide 12.5 mg 07/14/18 22:00 07/14/18 21:02 Hctz - PO Not Given HS TRESSA Ampicillin Sodium/Sulbactam 100 mls @ 200 mls/hr 07/13/18 17:00 07/15/18 09: 06 Sodium 3 gm/ Sodium Chloride IVPB 200 mls/hr Q6H-IV TRESSA Administration Lisinopril 10 mg 07/14/18 22:00 07/14/18 21:01 Prinivil PO 10 mg HS TRESSA Administration Metoprolol Succinate 50 mg 07/14/18 22:00 07/14/18 21:01 Toprol Xl - PO 50 mg HS TRESSA Administration ASSESSMENT/PLAN: Patient is a 73 year old male with a past medical history of hypertension and HLD who presents to the ED on 07/13/2018 with left facial cellulitis. ID: Left facial cellulitis, acute CT facial bone with extensive tissue swelling and cellulitis from left mandible into the periorbital region, no abscess seen. Possibly due to infection/ inflammation of upper molars. Patient to follow up with his dentist outpatient for possible extraction of infected molars. On Ampicilin/Sulbactam (started ). To be converted to PO Augmentin 875mg tomorrow on discharge x 7 days. Card: Hypertension: controlled on Torpol xl 50mg @ hs and Lisinopri 10mg PO @ hs. HLD: On Lipitor fen tolerating PO Monitor electrolytes/cbc daily soft diet until infection clears. prophy lovenox 40mg daily protonix bacid Visit type - Emergency Visit Emergency Visit: Yes ED Registration Date: 07/13/18 Care time: The patient presented to the Emergency Department on the above date and was hospitalized for further evaluation of their emergent condition. - New Patient This patient is new to me today: Yes Date on this admission: 07/15/18 - Critical Care Critical Care patient: No - Discharge Referral Referred to [facility] Med P.C.: No
[2018-07-15] MEDS: LACTOBACILLUS ACIDOPHILUS 1 TABLET PO SCH (15:01)
[2018-07-15] MEDS: ATORVASTATIN CA 10 MG TABLET (FP) PO SCH (21:05)
[2018-07-15] MEDS: HYDROCHLOROTHIAZIDE 12.5 MG CAPSULE (FP) PO SCH ×2 (21:05→21:24)
[2018-07-15] MEDS: LISINOPRIL 10 MG TABLET (FP) PO SCH (21:05)
[2018-07-15] MEDS: LISINOPRIL 5 MG TABLET (FP) PO ONE (23:51)
[2018-07-16] MEDS: AMPICILLIN NA/SULBACTAM NA 3 GM in SODIUM CHLORIDE 100 ML IVPB SCH ×2 (02:30→08:57)
[2018-07-16] MEDS: LISINOPRIL 5 MG TABLET (FP) PO ONE (05:54)
[2018-07-16 07:03] VITALS: TEMP 98
[2018-07-16] MEDS ORDERED: PT OWN MED DRAWER 7, Y5N ONE (07:48)
[2018-07-16] MEDS: LACTOBACILLUS ACIDOPHILUS 1 TABLET PO SCH (09:00)
--- NOTE | 2018-07-16 09:37 | DS ---
Physical Exam: SUBJECTIVE: Patient seen and examined at the bedside. wants to go home, anxious overnight. OBJECTIVE: discharge home with ID outpatient follow up patient refused morning lab work Vital Signs Period Temp Pulse Resp BP Sys/Bustos Pulse Ox Last 24 Hr 97.8 F-98 F 70-77 19-19 124-143/7-73 99 PHYSICAL EXAM GENERAL: The patient is awake, alert, and fully oriented, in no acute distress. HEAD: no trauma, mild left cheek edema, no airway or swallowing compromise. EYES: PERRL, extraocular movements intact, sclera anicteric, conjunctiva clear. No ptosis. NECK: Trachea midline, full range of motion, supple. ABDOMEN: Soft, nontender, nondistended, normoactive bowel sounds, no guarding, no rebound, no hepatosplenomegaly, no masses. EXTREMITIES: no edema. NEUROLOGICAL: Normal speech, steady gait PSYCH: Normal mood, normal affect. Active Medications LABS HOSPITAL COURSE: Date of Admission:07/13/18 Date of Discharge: 07/16/18 ASSESSMENT/PLAN: Patient is a 73 year old male with a past medical history of hypertension and HLD who presents to the ED on 07/13/2018 with left facial cellulitis. ID: Left facial cellulitis, resolving. CT facial bone with extensive tissue swelling and cellulitis from left mandible into the periorbital region, no abscess seen. Infection possibly due to infection/inflammation of upper molars. Patient to follow up with his dentist outpatient for possible extraction of infected molars once infection clears. On Ampicillin/Sulbactam (started 07/13>07/16). To be converted to PO Augmentin 875mg BID PO today for a total of 10 days. Card: Hypertension: controlled on Toprol xl 50mg @ hs and Lisinopri 10mg PO @ hs. HLD: On Lipitor discharge home today. patient to follow up with Dr. Levine as an outpatient. full code. Minutes to complete discharge: 60 Discharge Summary Reason For Visit: FACIAL INFECTION, CELLULITIS Current Active Problems Cellulitis (Acute) Facial infection (Acute) Condition: Stable - Instructions Diet, Activity, Other Instructions: Mr Rodriguez. You were admitted to [facility] on 07/13/2018 for a left facial infection. You have been treated with Ampicillin intravenous antibiotics and we will now convert you to oral antibiotics of Amoxcilin 875- 125mg twice per day for 10 days. Start taking this medication tonight. Please take with food. You were also ordered Bacid (a probiotic) to prevent stomach upset while you take this medication. Please continue this antibiotic without skipping doses. Please see Dr. Levine by making an appointment and following up with so that we can assure that the infection is improving. His contact information is enclosed. You should also follow up with your primary care doctor within 3-5 days of discharge. Please call me with questions that you may have. Zahra Burnett, ESTUARDO [facility] [phone] Referrals: Merry Levine MD [Staff Physician] - Disposition: HOME - Home Medications Comprehensive Discharge Medication List: Ambulatory Orders Atorvastatin Calcium 10 mg PO HS 07/13/18 Fenofibrate Nanocrystallized [Fenofibrate] 145 mg PO DAILY 07/13/18 Lisinopril/Hydrochlorothiazide [Lisinopril-Hctz 10-12.5 mg Tab] 1 each PO DAILY 07/13/18 Metoprolol Succinate 50 mg PO DAILY 07/13/18 Amoxicillin/Potassium Clav [Amox-Clav 875-125 mg Tablet] 1 each PO BID #14 tablet 07/16/18 Lactobacillus Acidophilus [Bacid -] 1 each PO DAILY #7 capsule 07/16/18 Lactobacillus Acidophilus [Bacid -] 1 tab PO DAILY tab 07/16/18 This patient is new to me today: No Emergency Visit: Yes ED Registration Date: 07/13/18 Care time: The patient presented to the Emergency Department on the above date and was hospitalized for further evaluation of their emergent condition. Critical Care patient: No - Discharge Referral Referred to [facility] Med P.C.: No
[2018-07-16] MEDS: ENOXAPARIN NA (PORCINE) 40 MG/0.4 ML DISP.SYRIN SQ SCH (09:55)
[2018-07-16 10:00] VITALS: BP 126/65; PULSE 79
--- NOTE | 2018-07-16 10:34 | PN ---
Progress Note, Physician History of Present Illness: patient doing well no complaints swelling looks much better - Current Medication List Current Medications: Active Medications Acetaminophen (Tylenol -) 650 mg PO Q6H PRN PRN Reason: PAIN LEVEL 1-5 Atorvastatin Calcium (Lipitor -) 10 mg PO [facility] Last Admin: 07/15/18 21:05 Dose: 10 mg Enoxaparin Sodium (Lovenox -) 40 mg SQ DAILY [facility] Last Admin: 07/16/18 09:55 Dose: Not Given Hydrochlorothiazide (Hctz -) 12.5 mg PO [facility] Last Admin: 07/15/18 21:24 Dose: Not Given Ampicillin Sodium/Sulbactam (Sodium 3 gm/ Sodium Chloride) 100 mls @ 200 mls/ hr IVPB Q6H-IV [facility] Last Admin: 07/16/18 08:57 Dose: 200 mls/hr Lactobacillus Acidophilus (Bacid -) 1 tab PO DAILY [facility] Last Admin: 07/16/18 09:00 Dose: 1 tab Lisinopril (Prinivil) 10 mg PO [facility] Last Admin: 07/15/18 21:05 Dose: 10 mg Metoprolol Succinate (Toprol Xl -) 50 mg PO [facility] Last Admin: 07/15/18 21:20 Dose: 50 mg - Objective Vital Signs: Vital Signs Temperature 98 F 07/16/18 07:00 Pulse Rate 79 07/16/18 09:56 Respiratory Rate 18 07/16/18 09:56 Blood Pressure 126/65 07/16/18 09:56 O2 Sat by Pulse Oximetry (%) 99 07/15/18 21:00 Constitutional: Yes: No Distress, Calm Cardiovascular: Yes: Regular Rate and Rhythm Respiratory: Yes: Regular, CTA Bilaterally Gastrointestinal: Yes: Normal Bowel Sounds, Soft Musculoskeletal: Yes: WNL Extremities: Yes: WNL Integumentary: Yes: Erythema (of the face malik resolved) Neurological: Yes: Alert, Oriented Psychiatric: Yes: Alert, Oriented Labs: CBC, BMP 07/14/18 06:10 07/14/18 06:10 Assessment/Plan [facility] List - Problems (1) Cellulitis Code(s): L03.90 - CELLULITIS, UNSPECIFIED Qualifiers: Site of cellulitis: unspecified site Qualified Code(s): L03.90 - Cellulitis , unspecified (2) Facial infection Code(s): L08.9 - LOCAL INFECTION OF THE SKIN AND SUBCUTANEOUS TISSUE, UNSP Assessment/Plan 73 y.o. male with PMH of HTN, HLD with poor dentition presenting with Lt facial swelling Facial cellulitis/ odontogenic source Poor dentition/caries plan can switch to oral abx augmentin for another 10 days must see a dentist rest as per the team patient improving
== END 2018-07-16 11:35 | disposition home or self-care (01) | DRG 603 ==
LOC: JER 12:58 → JERBED 14:20 → J6S 22:22
PROVIDERS: ADMIT Internal Medicine; ATTEND Nurse Practitioner Family
DX: L03.211 Cellulitis of face (principal); I10 Essential (primary) hypertension; E78.5 Hyperlipidemia, unspecified; K02.9 Dental caries, unspecified
CPT/HCPCS: 36415; 80053; 83735; 85025; 99283-25

== ENCOUNTER 2022-12-09 08:00 | Emergency (ER) | payer OTHER ==
[2022-12-09 08:09] VITALS: BMI 23.8
[2022-12-09 09:27] LABS: BASO % 0.5 % (0-2.0); EOS % 3.3 % (0-4.5); HEMATOCRIT 41.6 % (35.4-49); HEMOGLOBIN 14.3 GM/dL (11.7-16.9); LYMPH % 17.2 % (8-40); MCH 32.3 pg (25.7-33.7); MCHC 34.3 g/dl (32.0-35.9); MEAN CELL VOLUME 94.1 fl (80-96); MEAN PLT VOLUME 8.6 fl (7.5-11.1); MONO % 8.8 % (3.8-10.2); NEUT % 70.2 % (42.8-82.8); PLATELET COUNT 390 10^3/uL (134-434); RBC 4.42 M/mm3 (4.00-5.60); RDW 12.8 % (11.9-15.9); WHITE BLOOD COUNT 9.8 K/mm3 (4.0-10.0)
[2022-12-09 10:38] LABS: BLOOD UREA NITROGEN 21.1 mg/dL (7-18); CALCIUM 9.5 mg/dL (8.5-10.1)
[2022-12-09 10:39] LABS: ALBUMIN 4.1 g/dl (3.4-5.0); MAGNESIUM 2.2 mg/dL (1.8-2.4)
[2022-12-09 10:41] LABS: PHOSPHOROUS 3.1 mg/dL (2.5-4.9)
[2022-12-09 10:42] LABS: CREATININE 1.3 mg/dL (0.55-1.3)
[2022-12-09 10:43] LABS: TOT PROT 8.1 g/dl (6.4-8.2)
[2022-12-09 11:54] VITALS: BP 105/68; PULSE 87; RESP 17; TEMP 98
== END 2022-12-09 11:59 | disposition home or self-care (01) ==
LOC: JER 08:00
DX: R63.4 Abnormal weight loss (principal)
CPT/HCPCS: 36415; 80053; 83735; 84100; 85025; 93005; 93010; 99283-25

== ENCOUNTER 2023-10-06 08:37 | Inpatient (IN) | payer OTHER ==
[2023-10-06] MEDS ORDERED: SODIUM CHLORIDE 0.9% 500 ML INFUS.BAG IV ONE ×2 (09:18→12:24)
[2023-10-06] MEDS ORDERED: ACETAMINOPHEN 1000 MG/100 ML BAG IVPB ONE (09:19)
[2023-10-06] MEDS ORDERED: ACETAMINOPHEN INJECTION 100 ML IVPB ONE (09:58)
[2023-10-06 09:59] LABS: VENOUS BASE EXCESS -2.4 mmol/L (-2-2); VENOUS O2 SATURATION 77.1 % (70-80); VENOUS PCO2 35.5 mmHg (38-52); VENOUS PH 7.405 (7.310-7.410)
[2023-10-06 10:03] LABS: HEMATOCRIT 37.1 % (35.4-49); HEMOGLOBIN 12.3 GM/dL (11.7-16.9); MCH 30.8 pg (25.7-33.7); MCHC 33.2 g/dl (32.0-35.9); MEAN CELL VOLUME 92.7 fl (80-96); MEAN PLT VOLUME 8.4 fl (7.5-11.1); PLATELET COUNT 284 10^3/uL (134-434); RDW 13.6 % (11.9-15.9); WHITE BLOOD COUNT 25.6 K/mm3 (4.0-10.0)
[2023-10-06 10:10] LABS: INR 1.2 (0.83-1.09); PROTHROMBIN TIME (PATIENT) 13.9 SEC (9.7-13.0)
[2023-10-06 10:13] LABS: ACTIVATED PTT 26.2 SECONDS (25.2-36.5)
[2023-10-06] MEDS ORDERED: PIPERACILLIN/TAZOB 4.5 GM 4.5 GM in DEXTROSE 5%-WATER 100 ML IVPB ONE (10:15)
[2023-10-06] MEDS ORDERED: VANCOMYCIN 1,000 MG in DEXTROSE 5%-WATER - 250 ML IVPB ONE (10:15)
[2023-10-06 10:23] LABS: CHLORIDE 108 mmol/L (98-107); POTASSIUM 3.9 mmol/L (3.5-5.1); SODIUM 133 mmol/L (136-145)
[2023-10-06 10:26] LABS: ALBUMIN 3.7 g/dl (3.4-5.0); ANION GAP 3 mmol/L (4-13); BLOOD UREA NITROGEN 24.7 mg/dL (7-18); CALCIUM 8.9 mg/dL (8.5-10.1); CO2 22 mmol/L (21-32); GLUCOSE,RANDOM 92 mg/dL (74-106)
[2023-10-06] MEDS ORDERED: PIPERACILLIN/TAZOB 4.5 GM 4.5 GM/100 ML BAG IVPB ONE (10:26)
[2023-10-06 10:28] LABS: SGPT/ALT 20 U/L (13-61)
[2023-10-06 10:29] LABS: CREATININE 1.7 mg/dL (0.55-1.3); SGOT/AST 25 U/L (15-37)
[2023-10-06 10:30] LABS: TOT PROT 6.9 g/dl (6.4-8.2)
[2023-10-06 10:32] LABS: ALK PHOS 41 U/L (45-117)
[2023-10-06] MEDS ORDERED: ASPIRIN 81 MG CHEWABLE TABLETS PO ONE (10:40)
[2023-10-06 11:05] LABS: ANISOCYTOSIS 0; HELMET CELLS 0; HOWELL-JOLLY BODIES 0; MACROCYTOSIS 0; OVALOCYTE 0; ROULEAU 0; SICKELED CELLS 0; TARGET CELLS 0; TEAR DROP CELLS 0; TOXIC GRANULATION 0
[2023-10-06] MEDS ORDERED: ASPIRIN 81 MG CHEWABLE TABLETS ONE (12:31)
[2023-10-06] MEDS ORDERED: VANCOMYCIN 1 GRAM (PRE-DOCKED) 1,000 MG/250 ML BAG IVPB ONE (13:26)
[2023-10-06 14:23] LABS: EPI CELLS 2 /uL (0-25.1); HYALINE CASTS 4 /uL (0-3.1); URINE APPEARANCE CLOUDY; URINE BACTERIA 2237 /uL (0-1359); URINE BILIRUBIN 1+ (NEGATIVE); URINE COLOR DK YELLOW; URINE GLUCOSE (UA) NEGATIVE (NEGATIVE); URINE KETONE TRACE (NEGATIVE); URINE LEUK ESTERASE 2+ (NEGATIVE); URINE NITRITE NEGATIVE (NEGATIVE); URINE PROTEIN TRACE (NEGATIVE); URINE UROBILINOGEN 0.2 mg/dL (0.2-1.0); URINE WBC 786 /uL (0-25.8)
[2023-10-06] MEDS ORDERED: CEFTRIAXONE 1,000 MG in DEXTROSE 5%-WATER - 50 ML IVPB ONE (14:39)
[2023-10-06 14:41] LABS: YEAST NO SEEN (NEGATIVE)
[2023-10-06] MEDS ORDERED: CEFTRIAXONE 1 GM/50 ML BAG ONE (16:51)
[2023-10-06] MEDS ORDERED: ACETAMINOPHEN 325 MG TABLET (FP) PO PRN (17:19)
[2023-10-06] MEDS: SODIUM CHLORIDE 1,000 ML IV SCH (18:31)
[2023-10-06] MEDS ORDERED: ALBUTEROL SO4 0.083% IH SOL 2.5 MG/3 ML VIAL.NEB. NEB ONE (18:43)
[2023-10-06 21:14] LABS: N-TERMINAL BNP 1389.9 pg/ml (5-450)
[2023-10-06] MEDS ORDERED: ATORVASTATIN CA 20 MG TABLET (FP) ONE (22:21)
[2023-10-06] MEDS: ATORVASTATIN CA 10 MG TABLET (FP) PO SCH (22:30)
[2023-10-06 23:39] VITALS: BMI 23.1
[2023-10-07] MEDS: SODIUM CHLORIDE 1,000 ML IV SCH ×3 (00:16→21:28)
[2023-10-07] MEDS: CEFTRIAXONE 1 GM in DEXTROSE 5%-WATER - 50 ML IVPB SCH (10:11)
[2023-10-07] MEDS: ASPIRIN 81 MG CHEWABLE TABLETS PO SCH (10:11)
[2023-10-07] MEDS: ENOXAPARIN NA (PORCINE) 40 MG/0.4 ML DISP.SYRIN SQ SCH (10:13)
[2023-10-07] MEDS: ATORVASTATIN CA 10 MG TABLET (FP) PO SCH (21:28)
[2023-10-08] MEDS: CEFTRIAXONE 1 GM in DEXTROSE 5%-WATER - 50 ML IVPB SCH (09:13)
[2023-10-08] MEDS: ASPIRIN 81 MG CHEWABLE TABLETS PO SCH (09:14)
[2023-10-08] MEDS: ENOXAPARIN NA (PORCINE) 40 MG/0.4 ML DISP.SYRIN SQ SCH (09:15)
[2023-10-08] MEDS: SODIUM CHLORIDE 1,000 ML IV SCH (09:16)
[2023-10-08 09:27] LABS: BASO % 0.1 % (0-2.0); EOS % 2.3 % (0-4.5); HEMATOCRIT 33.7 % (35.4-49); HEMOGLOBIN 11.3 GM/dL (11.7-16.9); LYMPH % 9.1 % (8-40); MCH 31.3 pg (25.7-33.7); MCHC 33.6 g/dl (32.0-35.9); MEAN CELL VOLUME 93.3 fl (80-96); MONO % 4.4 % (3.8-10.2); NEUT % 84.1 % (42.8-82.8); PLATELET COUNT 237 10^3/uL (134-434); RBC 3.61 M/mm3 (4.00-5.60); RDW 13.7 % (11.9-15.9); WHITE BLOOD COUNT 12.4 K/mm3 (4.0-10.0)
[2023-10-08 09:49] LABS: POTASSIUM 3.7 mmol/L (3.5-5.1)
[2023-10-08 09:51] LABS: CALCIUM 8.5 mg/dL (8.5-10.1)
[2023-10-08 09:52] LABS: ALBUMIN 3.2 g/dl (3.4-5.0); BLOOD UREA NITROGEN 12.8 mg/dL (7-18)
[2023-10-08 09:55] LABS: CREATININE 1.1 mg/dL (0.55-1.3)
[2023-10-08 09:57] LABS: BILIRUBIN,TOTAL 0.7 mg/dL (0.2-1); TOT PROT 6.4 g/dl (6.4-8.2)
[2023-10-08 11:51] VITALS: BP 115/59; PULSE 51; RESP 20; TEMP 98.3
[2023-10-08] MEDS ORDERED: CEFUROXIME AXETIL 500 MG TABLET PO SCH (22:00)
== END 2023-10-08 13:34 | disposition home or self-care (01) | DRG 872 ==
LOC: JER 08:37 → JERBED 14:40 → J4W 23:19
PROVIDERS: ADMIT Family Medicine; ATTEND Family Medicine
DX: A41.89 Other specified sepsis (principal); E87.1 Hypo-osmolality and hyponatremia; N39.0 Urinary tract infection, site not specified; N17.9 Acute kidney failure, unspecified; I24.89 Other forms of acute ischemic heart disease; E78.00 Pure hypercholesterolemia, unspecified; B96.20 Unspecified Escherichia coli [E. coli] as the cause of diseases classified elsewhere; E04.1 Nontoxic single thyroid nodule; I25.10 Atherosclerotic heart disease of native coronary artery without angina pectoris; F17.210 Nicotine dependence, cigarettes, uncomplicated; I12.9 Hypertensive chronic kidney disease with stage 1 through stage 4 chronic kidney disease, or unspecified chronic kidney disease; N18.30 Chronic kidney disease, stage 3 unspecified; I44.7 Left bundle-branch block, unspecified; E78.1 Pure hyperglyceridemia; N28.89 Other specified disorders of kidney and ureter; D72.829 Elevated white blood cell count, unspecified
CPT/HCPCS: 0241U-QW; 36415; 71045-TC-FY; 80053; 81003; 82550; 82553; 82803; 83605; 83880; 84484; 85025; 85610; 85730; 86850; 86900; 86901; 87040; 87086; 87186; 93005; 93010; 93306-TC; 99285-25

== ENCOUNTER 2025-05-25 04:27 | Emergency (ER) | payer OTHER ==
[2025-05-25 04:33] VITALS: BP 118/73; PULSE 79; RESP 22; TEMP 97.7; BMI 24.4
[2025-05-25 05:55] LABS: INR 1.1 (0.83-1.09); PROTHROMBIN TIME (PATIENT) 12.0 SEC (9.7-13.0)
[2025-05-25 05:57] LABS: ACTIVATED PTT 30.6 SECONDS (25.2-36.5)
[2025-05-25 06:14] LABS: CO2 24.0 mmol/L (21-32); GLUCOSE,RANDOM 148.0 mg/dL (74-106)
[2025-05-25 06:17] LABS: CREATININE 1.4 mg/dL (0.55-1.3); SGOT/AST 19.0 U/L (15-37); SGPT/ALT 24.0 U/L (13-61)
[2025-05-25 06:18] LABS: IRON SERUM 42.0 ug/dL (50-175)
[2025-05-25 06:19] LABS: TOT PROT 7.4 g/dl (6.4-8.2)
[2025-05-25 06:20] LABS: ALK PHOS 38.0 U/L (45-117)
[2025-05-25 06:36] LABS: ABSOLUTE IMMATURE GRANULOCYTES 0.05 x10^3/uL (0.0-0.031); BASOPHILS # 0.01 x10^3/uL (0.01-0.08); EOSINOPHIL % 0.0 % (0.8-7.0); EOSINOPHILS # 0.00 x10^3/uL (0.04-0.54); MCHC 33.4 g/dl (32.3-36.5); MEAN CELL VOLUME 91.4 fl (79.0-92.2); MEAN PLT VOLUME 11.2 fl (9.4-12.4); MONOCYTE # 0.29 x10^3/uL (0.30-0.82); MONOCYTE % 4.1 % (5.3-12.2); RDW 13.1 % (12.2-16.6)
[2025-05-25 16:18] LABS: HCV DIAGNOSTIC IN-HOUSE W/RFLX NON-REACTIVE (NONREACTIVE)
[2025-05-25 22:15] LABS: HIV INTERPRETATION NEGATIVE (NEGATIVE)
== END 2025-05-25 07:06 | disposition home or self-care (01) ==
LOC: JER 04:27
DX: R06.02 Shortness of breath (principal)
CPT/HCPCS: 36415; 71045-TC-FY; 80053; 82728; 83540; 83550; 83735; 84484; 85025; 85610; 85730; 86803; 87389; 87637-QW; 93005; 93010; 99285-25